=== PATIENT | male | born 1950 | race Caucasian/White ===

== ENCOUNTER → 2023-12-25 | Outpatient (CLI) | payer MEDICARE ==
[~2023-12-25] MED LIST: ACET650T15 PO; CYAN-11 PO; FLUO-365 PO; LOSA100T46 PO; OMEGCAP9 PO; PERCOCET PO; PROBCAP14 PO; ROSU5TAB40 PO; THERTAB52 PO; VITA100093 PO
== END ==
LOC: M EKG 11:14
PROVIDERS: ATTEND Anesthesiology
DX: R03.0 Elevated blood-pressure reading, without diagnosis of hypertension (principal)

== ENCOUNTER 2024-01-01 06:04 | Day surgery (SDC) | payer MEDICARE ==
[~2024-01-01] VITALS: Ht 177.8 cm; Wt 75.3 kg
[~2024-01-01 06:04] MED LIST changes: -PERCOCET PO
[2024-01-01] MEDS ORDERED: LIDOCAINE 1% SDV 5ML VIAL SC PRN (06:10)
[2024-01-01] MEDS ORDERED: fentaNYL 100 MCG/2 ML INJECTION As Ordered ONE (06:41)
[2024-01-01] MEDS ORDERED: propofoL 200 MG/20 ML VIAL As Ordered ONE (06:41)
[2024-01-01] MEDS ORDERED: LIDOCAINE 2% 100MG/5ML SDV (FOR ANES.) As Ordered ONE (06:41)
[2024-01-01] MEDS ORDERED: ACETAMINOPHEN 1000MG 100ML IV BAG As Ordered ONE (06:41)
[2024-01-01] MEDS ORDERED: KETOROLAC 60MG 2ML VIAL As Ordered ONE (06:41)
[2024-01-01] MEDS ORDERED: ONDANSETRON 4MG 2ML VIAL As Ordered ONE (06:41)
[2024-01-01] MEDS: LR 1,000 ML IV SCH (06:51)
[2024-01-01] MEDS: ceFAZolin SOD 2 GM in IV 1 EA IV ONE (07:45)
[2024-01-01] MEDS: LIDOCAINE W/EPINEPHRINE 1% 20ML VIAL As Ordered ONE (08:55)
[2024-01-01] MEDS ORDERED: LR 1,000 ML IV SCH (09:05)
[2024-01-01] MEDS ORDERED: HYDROMORPHONE HCL 0.5 MG/ 0.5 ML SYRINGE IV PRN (09:05)
[2024-01-01] MEDS ORDERED: ONDANSETRON 4MG 2ML VIAL IV PRN (09:05)
[2024-01-01] MEDS ORDERED: fentaNYL 100 MCG/2 ML INJECTION IV PRN (09:05)
[2024-01-01] MEDS ORDERED: PERCOCET PO (09:08)
[2024-01-01] MEDS: oxyCODONE 5MG TAB PO PRN (09:34)
[2024-01-01 10:19] VITALS: BP 170/82; TEMP 97; O2SAT 98
== END 2024-01-01 10:46 | disposition home or self-care (01) ==
LOC: M SDC 06:04
PROVIDERS: ATTEND Orthopaedic Surgery Hand Surgery
DX: G56.22 Lesion of ulnar nerve, left upper limb (principal); G56.02 Carpal tunnel syndrome, left upper limb; Z88.2 Allergy status to sulfonamides
CPT/HCPCS: 29999; 64721; J0131; J0690; J1885; J2405; J3010

== ENCOUNTER → 2024-09-16 | Outpatient (CLI) | payer MEDICARE ==
[~2024-09-16] MED LIST changes: +PERCOCET PO; -ROSU5TAB40 PO; +ROSU5TAB49 PO
== END ==
LOC: M RAD 09:21
PROVIDERS: ATTEND Orthopaedic Surgery Hand Surgery
DX: M47.812 Spondylosis without myelopathy or radiculopathy, cervical region (principal); M25.78 Osteophyte, vertebrae

== ENCOUNTER → 2024-11-26 | Outpatient (RCR) | payer MEDICARE ==
[~2024-11-26] MED LIST changes: +ACET-1515 PO; -ACET650T15 PO
== END ==
LOC: M PT 11-05 09:29
PROVIDERS: ATTEND Nurse Practitioner Family
DX: M54.2 Cervicalgia (principal)

== ENCOUNTER 2024-12-10 13:26 | Outpatient (RCR) | payer MEDICARE | END 2024-12-27 | LOC: M PT 13:26 | PROVIDERS: ATTEND Nurse Practitioner Family | DX: M54.2 Cervicalgia (principal) ==